=== PATIENT | male | born 1995 | race African-American/Black ===

== ENCOUNTER 2024-08-20 13:32 | Emergency (ER) | payer OTHER ==
[2024-08-20] MEDS: Ibuprofen 600 MG Tab PO ONE (14:01)
[2024-08-20] MEDS: Acetaminophen 500 MG Tab PO ONE (14:01)
== END 2024-08-20 14:50 | disposition home or self-care (01) ==
LOC: MW.ED 13:32
DX: J06.9 Acute upper respiratory infection, unspecified (principal); Z75.8 Other problems related to medical facilities and other health care; Z79.899 Other long term (current) drug therapy
CPT/HCPCS: 87428; 87651; 99284; A9270; 99283

== ENCOUNTER 2024-12-12 20:14 | Emergency (ER) | payer BC, OTHER | END 2024-12-12 21:32 | disposition home or self-care (01) | LOC: MW.ED 20:14 | DX: A53.9 Syphilis, unspecified (principal) | CPT/HCPCS: 96372; 99283; J0561; 99282 ==